=== PATIENT | female | born 1960 | race Caucasian/White ===

== ENCOUNTER → 2017-09-03 | Outpatient (CLI) | payer BC ==
--- NOTE | 2017-09-04 08:51 | XR ---
EXAMINATION TYPE: XR knee 4V RT, XR ankle complete 3VRT DATE OF EXAM: 09/03/2017 COMPARISON: NONE HISTORY: 57-year-old female pain after fall 3 weeks ago FINDINGS: Right knee: No knee joint effusion. Extensor mechanism is intact. No acute fracture, subluxation, or dislocation. Right ankle: Ankle mortise is congruent with preservation of the distal tibiofibular overlap. Talar dome is intact . Moderate sized plantar calcaneal spur. No acute fracture or dislocation. IMPRESSION: 1. Right knee: No acute osseous abnormality or joint effusion. 2. Right ankle: Moderate sized plantar calcaneal spur. No acute osseous abnormality seen.
== END ==
LOC: RADXRMAIN 16:53
PROVIDERS: ATTEND Family Medicine
DX: M77.31 Calcaneal spur, right foot (principal); S80.01XA Contusion of right knee, initial encounter; M92.51 Juvenile osteochondrosis of proximal tibia